=== PATIENT | male | born 1940 | race Caucasian/White ===

== ENCOUNTER → 2021-03-31 | Outpatient (CLI) | payer MEDICARE, OTHER ==
[~2021-03-31] MED LIST: ALLO300 PO; ASPI325 PO; ASPI81CH PO; CHOL10002 PO; GLIP10 PO; LEVSOD88 PO; LOSA25 PO; METF500C PO; Percocet 5-3251 EACH PO; ROSU10TA PO; VITAMIN B12 PO
== END | disposition home or self-care (01) ==
LOC: LAB SHORT 12:09 → PLD 12:09
DX: C44.519 Basal cell carcinoma of skin of other part of trunk (principal)
CPT/HCPCS: 88305